=== PATIENT | male | born 1965 | race Two or more races ===

== ENCOUNTER 2017-02-17 15:48 | Emergency (ER) | payer SELFPAY ==
--- NOTE | ~2017-02-17 | ER ---
PATIENT'S NAME: JAYLA [facility] AGE: 51 Y [address] ROOM: [place] [id number] LOCATION: [facility] ADMIT DATE: 02/17/2017 ER/Outpatient Report DISCHARGE DATE: 02/17/2017 FAMILY PHYSICIAN: PHYSICIAN, NO ATTENDING PHYSICIAN: Ventura Herndon Time of Arrival: 1550 hours. Time of Evaluation: 1600 hours. CHIEF COMPLAINT: Swelling of the left side of his face. HISTORY OF PRESENT ILLNESS: The patient states that he bit down on something a couple of days ago and felt as though something happened with his tooth. Did not have any problems until the last couple of days. He has had swelling of his left side of his face and pain when he touches the left upper gum area. He denies feeling febrile. He has not been nauseated. He has not vomited. Denies having a runny nose, cough, congestion. ALLERGIES: NO KNOWN ALLERGIES. CURRENT MEDICATIONS: On his chart and reviewed by me. PAST MEDICAL HISTORY: Diabetes, hypertension. SOCIAL HISTORY: He smokes a half to one pack per day. Denies use of drugs or alcohol. REVIEW OF SYSTEMS: All negative other than those mentioned in the HPI. PHYSICAL EXAMINATION: VITAL SIGNS: He weighs 80.7 kg, blood pressure is 157/84, pulse is 73, respirations 16, temperature of 97.5, O2 saturation is 93% on room air. GENERAL: He is awake, alert, and oriented x4. SKIN: [place], warm, and dry. RESPIRATIONS: Even and nonlabored. Lung sounds are clear throughout. HEART: Regular rate and rhythm. The patient has teeth of various stages of decay in the left upper posterior area. The left upper posterior gum is slightly reddened. It is edematous. It is tender to touch. No lymphedema is noted. PATIENT'S NAME: JEN DICKERSON [facility] AGE: 51 Y [address] ROOM: [place] [id number] LOCATION: [facility] ADMIT DATE: 02/17/2017 ER/Outpatient Report DISCHARGE DATE: 02/17/2017 FAMILY PHYSICIAN: PHYSICIAN, NO ATTENDING PHYSICIAN: Ventura Herndon IMPRESSION: Infected tooth, gum area. PLAN: Home, rest, soft foods. Frequent rinses of his mouth. Prescription was written for cephalexin. Tylenol, or ibuprofen as needed for discomfort and follow up with a dentist or a primary provider in the next 2 to 3 days. He verbalized understanding. MAHSA ANGUIANO APRN FOR MD ROJAS RIVERA/benedict /[id number] d: 02/17/172047 t: 02/27/17 1933, OUTPATIENT REPORT
== END 2017-02-17 16:30 | disposition disaster alternative care site (69) ==
LOC: GMED 15:48
DX: K04.7 Periapical abscess without sinus (principal); K05.10 Chronic gingivitis, plaque induced; E11.9 Type 2 diabetes mellitus without complications; F17.210 Nicotine dependence, cigarettes, uncomplicated; I10 Essential (primary) hypertension; Z91.013 Allergy to seafood; Z91.018 Allergy to other foods; Z79.82 Long term (current) use of aspirin; Z79.84 Long term (current) use of oral hypoglycemic drugs; Z79.899 Other long term (current) drug therapy; Z71.6 Tobacco abuse counseling